=== PATIENT | male | born 1995 | race Hispanic/Latino ===

== ENCOUNTER 2018-09-29 07:50 | Emergency (ER) | payer SELFPAY ==
[2018-09-29 07:59] VITALS: BMI 35.9
[2018-09-29 08:03] VITALS: TEMP 98.4
--- NOTE | 2018-09-29 08:35 | ED PDOC ---
Arrival/HPI - General Historian: Patient, Parent - History of Present Illness Narrative History of Present Illness (Text): 09/29/18 08:32 CC: abdominal pain HPI: 23 yo male w/ PMH of appendicitis comes to ED for evaluation of abdominal pain. Patient states the pain started 3-4 days ago, located in the mid epigastric region radiates down, described as sharp in nature, constant in nature, no association w/ worsening of pain with food. Patient reports the day before the pain started he was at a BBQ where he drank 8 beers. Patient states he has not taken anything for the pain. Admits that he was able to tolerate oral intake yesterday. States he has been having very minute bowel movements. Took a suppository in the AM today but still only had a slight bowel movement. Patient denies fevers, chills, chest pain, sob, n/v, constipation or diarrhea, and dysuria. Time/Duration: < week Symptom Onset: Sudden Symptom Course: Unchanged Quality: Other (sharp) Severity Level: 5 Activities at Onset: Rest Context: Sitting <Vishal Ta - Last Filed: 09/29/18 12:03> <Kevin Mina - Last Filed: 09/29/18 12:09> - General Chief Complaint: Abdominal Pain Time Seen by Provider: 09/29/18 08:21 Past Medical History - Provider Review Nursing Documentation Reviewed: Yes - Past Medical History Past Medical History: No Previous - Psychiatric Hx Anxiety: Yes Hx Depression: Yes Hx Substance Use: No - Surgical History Hx Appendectomy: Yes - Anesthesia Hx Anesthesia: Yes Hx Anesthesia Reactions: No Hx Malignant Hyperthermia: No - Suicidal Assessment Feels Threatened In Home Enviroment: No <Boo Taaser - Last Filed: 09/29/18 12:03> Family/Social History - Physician Review Nursing Documentation Reviewed: Yes Family/Social History: No Known Family HX Smoking Status: Never Smoked Hx Alcohol Use: No Hx Substance Use: No Hx Substance Use Treatment: No <Boo Taaser - Last Filed: 09/29/18 12:03> Allergies/Home Meds <Boo Taaser - Last Filed: 09/29/18 12:03> <Kevin Mina - Last Filed: 09/29/18 12:09> Allergies/Adverse Reactions: Allergies amoxicillin [From Augmentin] Allergy (Verified 09/29/18 08:00) URTICARIA clavulanic acid [From Augmentin] Allergy (Verified 09/29/18 08:00) URTICARIA Home Medications: Home Meds Medication Instructions Recorded Confirmed buPROPion SR [Wellbutrin SR] 100 mg PO DAILY 09/29/18 09/29/18 Review of Systems - Review of Systems Constitutional: Normal. absent: Fatigue, Weight Change, Fevers Eyes: Normal. absent: Vision Changes, Photophobia ENT: Normal. absent: Hearing Changes, Tinnitus Respiratory: Normal. absent: SOB, Cough, Sputum Cardiovascular: Normal. absent: Chest Pain, Palpitations, Edema Gastrointestinal: Abdominal Pain, Stool Changes. absent: Normal, Constipation, Diarrhea, Nausea, Vomiting Genitourinary Male: Normal. absent: Dysuria, Frequency, Hematuria Musculoskeletal: Normal. absent: Arthralgias, Back Pain, Neck Pain Skin: Normal. absent: Rash, Pruritis, Skin Lesions Neurological: Normal. absent: Headache, Dizziness, Focal Weakness Endocrine: Normal. absent: Diaphoresis, Polyuria, Polydipsia Psychiatric: Normal. absent: Anxiety, Depression <Vishal Ta - Last Filed: 09/29/18 12:03> - Physician Review All systems were reviewed & negative as marked: Yes <Kevin Mina - Last Filed: 09/29/18 12:09> Physical Exam Vital Signs Reviewed: Yes Vital Signs Temp Pulse Resp BP Pulse Ox 09/29/18 08:00 98.4 F 90 19 152/90 H 96 Temperature: Afebrile Blood Pressure: Hypertensive Pulse: Regular Respiratory Rate: Normal Appearance: Positive for: Well-Appearing, Non-Toxic, Comfortable Pain Distress: Mild Mental Status: Positive for: Alert and Oriented X 3 - Systems Exam Head: Present: Atraumatic, Normocephalic. No: Tenderness Pupils: Present: PERRL Extroacular Muscles: Present: EOMI Conjunctiva: Present: Normal Mouth: Present: Moist Mucous Membranes Neck: Present: Normal Range of Motion. No: Meningeal Signs, JVD Respiratory/Chest: Present: Clear to Auscultation, Good Air Exchange. No: Respiratory Distress, Accessory Muscle Use Cardiovascular: Present: Regular Rate and Rhythm, Normal S1, S2. No: Murmurs, Tachycardic Abdomen: Present: Tenderness, Normal Bowel Sounds. No: Distention, Peritoneal Signs, Rebound, Guarding Upper Extremity: Present: Normal Inspection. No: Cyanosis, Edema Lower Extremity: Present: Normal Inspection. No: Edema Neurological: Present: GCS=15, CN II-XII Intact, Speech Normal Skin: Present: Warm, Dry, Normal Color. No: Rashes Psychiatric: Present: Alert, Oriented x 3, Normal Insight, Normal Concentration <KeyonVishal - Last Filed: 09/29/18 12:03> Vital Signs Temp Pulse Resp BP Pulse Ox 09/29/18 10:23 78 17 148/82 96 09/29/18 08:00 98.4 F 90 19 152/90 H 96 <Kevin Mina - Last Filed: 09/29/18 12:09> Medical Decision Making ED Course and Treatment: 09/29/18 08:37 Impression 23 yo male w/ PMH of appendicitis comes to ED for evaluation of abdominal pain. Plan -CBC -CMP -Lipase -Abdomen U/S -Abdomen Xray -CT abdomen/pelvis Prior Visits No prior visits Progress Notes pending lab work and imaging for dispo 09/29/18 08:47 Reviewed imaging and blood work; CT was significant for mesenteric adenitis Will refer for GI outpatient workup Re-evaluation Time: 12:05 Reassessment Condition: Re-examined, Improving,but remains with symptoms - Lab Interpretations I have reviewed the lab results: Yes Interpretation: All labs normal - RAD Interpretation Radiology Orders: 09/29/18 08:30 ABD & PELVIS IV CONTRAST ONLY [CT] Stat <KeyonBooaser - Last Filed: 09/29/18 12:03> ED Course and Treatment: 09/29/18 12:00 patient seen and examined by myself, patient reports that at this time his pain is improved/nearly resolved. patient aware of CT diagnostic findings. recommend follow up with GI. patient stable for dc. - Lab Interpretations Lab Results: Total Bilirubin 0.3 mg/dL (0.2-1.3) 09/29/18 08:50 AST 25 U/L (17-59) 09/29/18 08:50 ALT 25 U/L (7-56) 09/29/18 08:50 Alkaline Phosphatase 70 U/L (38-126) 09/29/18 08:50 Total Protein 8.0 g/dL (5.8-8.3) 09/29/18 08:50 Albumin 4.4 g/dL (3.0-4.8) 09/29/18 08:50 Globulin 3.6 gm/dL 09/29/18 08:50 Albumin/Globulin Ratio 1.2 (1.1-1.8) 09/29/18 08:50 Lipase 65 U/L (23-300) 09/29/18 08:50 - RAD Interpretation Narrative RAD Interpretations (Text): Abdomen X-ray Dictator : Bry Salazar MD Report Date : 09/29/2018 10:02:09 IMPRESSION: No evidence of acute mechanical bowel obstruction. PROCEDURE: CT abdomen and pelvis Dictator : Bry Salazar MD Report Date : 09/29/2018 11:37:33 IMPRESSION: Discontinuous wall thickening of the colon consistent with a nonspecific inflammatory process; rule out infectious versus inflammatory colitis. Multiple small to medium-sized mesenteric lymph nodes possibly representing a reactive mesenteric adenitis. Postoperative changes of appendectomy. Mild fatty hepatic infiltration. Radiology Orders: 09/29/18 08:46 ABDOMEN (FLAT PLATE) 1VIEW [RAD] Stat ABDOMEN COMPLETE [US] Stat 09/29/18 10:12 ABDOMEN & PELVIS [ABD & PELVIS IV CONTRAST ONLY] [CT] Stat Family Preservation Worker: Radiologist <Kevin Mina - Last Filed: 09/29/18 12:09> - PA / [employer] MECH[employer]IC / Resident Statement / has reviewed & agrees with the documentation as recorded. / has examined the patient and agrees with the treatment plan. - Scribe Statement The provider has reviewed the documentation as recorded by the Rut Stein Provider Scribe Attestation: All medical record entries made by the Rut were at my direction and personally dictated by me. I have reviewed the chart and agree that the record accurately reflects my personal performance of the history, physical exam, medical decision making, and the department course for this patient. I have also personally directed, reviewed, and agree with the discharge instructions and disposition. <Kevin Mina - Last Filed: 09/29/18 12:09> Disposition/Present on Arrival - Present on Arrival Any Indicators Present on Arrival: No History of DVT/PE: No History of Uncontrolled Diabetes: No Urinary Catheter: No History of Decub. Ulcer: No History Surgical Site Infection Following: None - Disposition Have Diagnosis and Disposition been Completed?: Yes Patient Plan: Discharge <Vishal Ta - Last Filed: 09/29/18 12:03> - Present on Arrival Any Indicators Present on Arrival: No - Disposition Have Diagnosis and Disposition been Completed?: Yes Disposition Time: 12:02 Patient Plan: Discharge <Kevin Mina - Last Filed: 09/29/18 12:09> - Disposition Diagnosis: Mesenteric adenitis, Constipation Disposition: HOME/ ROUTINE Patient Problems: Current Active Problems Problem Status Onset Mesenteric adenitis Acute Constipation Acute Condition: STABLE Discharge Instructions (ExitCare): Constipation in Adults, Mesenteric Lymphadenitis (DC) Additional Instructions: return for any new or worsening symptoms. follow up with a copy operator. Prescriptions: Ibuprofen [Motrin Tab] 600 mg PO QID #30 tab Magnesium Citrate [Citrate of Mag] 300 ml PO DAILY 1 Days bottle Referrals: Rod Sanchez MD [Staff Provider] - Follow up with primary Lilian Valle MD [Medical Doctor] - Follow up with primary Forms: [facility] (Ukrainian), WORK NOTE
[2018-09-29 09:13] LABS: ALB/GLOB RATIO 1.2 (1.1-1.8); ALBUMIN 4.4 g/dL (3.0-4.8); ALT/SGPT 25 U/L (7-56); AST/SGOT 25 U/L (17-59); BLOOD UREA NITROGEN 8 mg/dL (7-21); CALCIUM 9.9 mg/dL (8.4-10.5); GFR NON-AFRICAN AMERICAN > 60; LIPASE 65 U/L (23-300)
[2018-09-29 09:14] LABS: BASO # 0.02 K/mm3 (0.0-2.0); BASO % 0.3 % (0.0-3.0); EOS # 0.1 (0.0-0.7); EOS % 1.1 % (1.5-5.0); HEMOGLOBIN 15.9 g/dL (14.0-18.0); LYMPH # 2.9 (1.2-3.4); LYMPH % 39.3 % (22.0-35.0); MEAN CORPUSCULAR HEMOGLOBIN 31.2 pg (25.0-35.0); MEAN CORPUSCULAR HGB CONC 35.5 g/dl (31.0-37.0); MEAN PLATELET VOLUME 10.5 fl (7.0-11.0); MONO # 0.5 (0.1-0.6); MONO % 6.3 % (1.0-6.0); RBC 5.09 10^6/uL (3.5-6.1); RED CELL DISTRIBUTION WIDTH 13.5 % (11.5-14.5); WHITE BLOOD COUNT 7.3 10^3/uL (4.5-11.0)
--- NOTE | 2018-09-29 10:05 | RAD ---
Date of service: 2018-09-29 09:55:38 HISTORY: Abdominal pain COMPARISON: None available. TECHNIQUE: 1 view obtained. FINDINGS: BOWEL: Normal. No obstruction. No free air. BONES: Normal. OTHER FINDINGS: None. IMPRESSION: No evidence of acute mechanical bowel obstruction.
[2018-09-29 10:24] VITALS: RESP 17
--- NOTE | 2018-09-29 11:41 | CT ---
Date of service: 09/29/2018 PROCEDURE: CT abdomen and pelvis HISTORY: Mid abdominal pain. History of appendectomy. COMPARISON: No prior study available for comparison TECHNIQUE: Contiguous axial images of the abdomen and pelvis. Oral contrast was administered. No IV contrast given. Coronal and Sagittal reformats generated. Radiation dose: Total exam DLP = 1144.19 mGy-cm. This CT exam was performed using one or more of the following dose reduction techniques: Automated exposure control, adjustment of the mA and/or kV according to patient size, and/or use of iterative reconstruction technique. FINDINGS: LOWER THORAX: Heart size normal. No significant pericardial effusion. Tiny hiatal hernia. Lung bases clear. LIVER: Liver exhibits normal size measuring approximately 17 cm in CC dimension. Mild diffuse fatty hepatic infiltration. No obvious hepatic mass collection or calcification. Portal and splenic veins opacified. No gross intrahepatic ductal dilatation. GALLBLADDER AND BILE DUCTS: Gallbladder physiologically distended. No evidence of intraluminal gallbladder calculi. PANCREAS: Unremarkable. No mass. No ductal dilatation. SPLEEN: Unremarkable. No splenomegaly. ADRENALS: No adrenal lesions. KIDNEYS AND URETERS: The kidneys demonstrate relatively symmetric nephrograms. No evidence of nephrolithiasis or hydronephrosis. No renal masses or collections. BLADDER: Urinary bladder is physiologically distended. No evidence of intraluminal urinary bladder calculi. REPRODUCTIVE: Unremarkable as visualized APPENDIX: Changes of appendectomy BOWEL: Evaluation of the bowel is limited due to the lack of oral contrast material. The stomach is incompletely distended with slight thick-walled appearance. Visualized loops of small bowel exhibit normal contour and caliber. No evidence of acute mechanical small bowel obstruction. Metallic clip seen along the posterior aspect base of the cecum consistent with this patient's history of prior appendectomy aspect base of the cecum. There is mild wall thickening of the distal ascending colon, hepatic flexure and proximal transverse colon felt to be secondary to a nonspecific inflammatory process; rule out infectious versus inflammatory colitis. There is also mild wall thickening of most of the descending colon. There is also moderate amount of stool seen within the distal descending and sigmoid colon consistent with mild fecal retention- constipation. PERITONEUM: No free intraperitoneal air. No free or loculated fluid collections.. There is a small fat containing umbilical hernia. Small fat containing bilateral inguinal hernias are present. LYMPH NODES: There are multiple scattered small to medium-sized mesenteric lymph nodes largest of which is located in the right mid abdomen. Findings may represent a secondary mesenteric adenitis VASCULATURE: Unremarkable. No aortic aneurysm. No aortic atherosclerotic calcification or mural plaque present. BONES: No fracture or destructive lesion. OTHER FINDINGS: None. IMPRESSION: Discontinuous wall thickening of the colon consistent with a nonspecific inflammatory process; rule out infectious versus inflammatory colitis. Multiple small to medium-sized mesenteric lymph nodes possibly representing a reactive mesenteric adenitis. Postoperative changes of appendectomy. Mild fatty hepatic infiltration.
--- NOTE | 2018-09-29 12:10 | US ---
Date of service: 09/29/2018 HISTORY: abdominal pain COMPARISON: None. TECHNIQUE: Sonographic evaluation of the abdomen. FINDINGS: LIVER: Measures 20.4 cm. Diffusely increased echogenicity of the liver parenchyma. Consistent with fatty infiltration. Smooth contour. No mass. No biliary ductal dilatation. GALLBLADDER: Unremarkable. No gallstones. COMMON BILE DUCT: Measures 5 mm. No stones. No dilatation. PANCREAS: Suboptimally visualized due to overlying bowel gas. RIGHT KIDNEY: Measures 10.6cm. Normal echogenicity. No calculus, mass, or hydronephrosis. LEFT KIDNEY: Measures 11.3cm. Normal echogenicity. No calculus, mass, or hydronephrosis. SPLEEN: Normal in size and contour. No mass. AORTA: No aneurysmal dilatation. IVC: Unremarkable. OTHER FINDINGS: None. IMPRESSION: Mild hepatomegaly with diffuse fatty infiltration of the liver. Otherwise unremarkable examination.
[2018-09-29 12:35] VITALS: BP 136/87; PULSE 74; O2SAT 99
== END 2018-09-29 12:34 | disposition home or self-care (01) ==
LOC: ED 07:50
DX: I88.0 Nonspecific mesenteric lymphadenitis (principal); K59.00 Constipation, unspecified
CPT/HCPCS: 74018; 74177; 76700; 80053; 83690; 85025; 99283; Q9967